=== PATIENT | male | born 1970 | race Caucasian/White ===

== ENCOUNTER 2024-12-06 08:59 | Emergency (ER) | payer OTHER ==
[2024-12-06 09:26] VITALS: TEMP 97.5; BMI 27.4
[2024-12-06] MEDS ORDERED: ALBUTEROL SO4 2.5/IPRATROPIUM 0.5 INH SOL 3 ML VIAL.NEB. NEB ONE (09:35)
[2024-12-06] MEDS: ALBUTEROL SO4 2.5/IPRATROPIUM 0.5 INH SOL 3 ML VIAL.NEB. NEB SCH (09:40)
[2024-12-06 10:00] LABS: ABSOLUTE IMMATURE GRANULOCYTES 0.03 x10^3/uL (0.0-0.031); EOSINOPHILS # 0.27 x10^3/uL (0.04-0.54); HEMATOCRIT 52.2 % (40.1-51.0); HEMOGLOBIN 17.3 g/dL (13.7-17.5); MCHC 33.1 g/dl (32.3-36.5); MEAN CELL VOLUME 92.2 fl (79.0-92.2); MEAN PLT VOLUME 9.6 fl (9.4-12.4); MONOCYTE # 0.63 x10^3/uL (0.30-0.82); MONOCYTE % 6.9 % (5.3-12.2); PLATELET COUNT 276 x10^3/uL (163-337); RDW 12.7 % (12.2-16.1)
[2024-12-06] MEDS ORDERED: METOCLOPRAMIDE HCL INJECTION 10 MG/2 ML VIAL ONE (10:08)
[2024-12-06] MEDS: METOCLOPRAMIDE HCL INJECTION 10 MG/2 ML VIAL IVPUSH ONE (10:17)
[2024-12-06 10:31] LABS: POTASSIUM 4.5 mmol/L (3.5-5.1)
[2024-12-06 10:44] LABS: ALBUMIN 3.9 g/dl (3.4-5.0); BILIRUBIN,TOTAL 0.4 mg/dL (0.2-1); BLOOD UREA NITROGEN 11.2 mg/dL (7-18); CALCIUM 9.3 mg/dL (8.5-10.1); CREATININE 0.9 mg/dL (0.55-1.3); MAGNESIUM 2.1 mg/dL (1.8-2.4); TOT PROT 7.1 g/dl (6.4-8.2)
[2024-12-06] MEDS: LACTATED RINGERS SOLUTION 1000 ML INFUS.BAG IV ONE (12:08)
[2024-12-06 13:14] VITALS: BP 121/74; PULSE 71; RESP 20
== END 2024-12-06 13:14 | disposition home or self-care (01) ==
LOC: JER 08:59
PROC: 3E033GC Introduction of Other Therapeutic Substance into Peripheral Vein, Percutaneous Approach (ICD-10-PCS; principal; 2024-12-06)
PROC: 3E0F7GC Introduction of Other Therapeutic Substance into Respiratory Tract, Via Natural or Artificial Opening (ICD-10-PCS; 2024-12-06)
DX: R42 Dizziness and giddiness (principal); R11.2 Nausea with vomiting, unspecified; R61 Generalized hyperhidrosis
CPT/HCPCS: 0241U-QW; 36415; 71045-TC-FY; 80053; 82962; 83735; 84484; 85025; 93005; 93010; 99285-25